=== PATIENT | male | born 1940 | race Caucasian/White ===

== ENCOUNTER 2017-01-24 09:54 | Emergency (ER) | payer MEDICARE, OTHER ==
[~2017-01-24] VITALS: Ht 172.7 cm; Wt 64.4 kg
[~2017-01-24 09:54] MED LIST: AMLODIPINE BESYL5 MG PO; ASPIRIN325 MG PO; ATENOLOL50 MG PO; CLOPIDOGREL75 MG PO; COMBIVENT RESPIM4 GM; FISH OIL 1,2001 EACH; IPRATROPIUM BRO15 ML; PROTONIX40 MG/ML PO; SIMVASTATIN20 MG PO
[2017-01-24 11:15] LABS: BASOPHILS % 0.5 % (0.0-1.0); EOSINOPHILS # (AUTO) 0.1 (0.0-0.4); EOSINOPHILS % 0.8 % (0.0-6.0); HEMATOCRIT 39.3 % (38.2-49.6); HEMOGLOBIN 13.6 g/dL (14.0-18.0); LYMPHOCYTES # (AUTO) 0.8 (1.0-3.2); LYMPHOCYTES % 12.7 % (18.0-39.1); MEAN CORPUSCULAR HEMOGLOBIN 34.7 pg (28-32); MEAN CORPUSCULAR HGB CONC 34.6 g/dL (31-35); MEAN CORPUSCULAR VOLUME 100.3 fL (81-99); MONOCYTES # (AUTO) 0.5 (0.2-0.8); MONOCYTES % 7.7 % (4.4-11.3); NEUTROPHILS # (AUTO) 4.8 (2.1-6.9); PLATELET COUNT 146 x10e3/uL (140-360); RED BLOOD COUNT 3.92 x10e6/uL (4.3-5.7); RED CELL DISTRIBUTION WIDTH 13.2 % (11.7-14.4)
[2017-01-24 11:27] LABS: INR 0.86; PARTIAL THROMBOPLASTIN TIME 29.2 seconds (23.8-35.5); PROTHROMBIN TIME 12.2 seconds (11.9-14.5)
[2017-01-24 11:31] LABS: BLOOD UREA NITROGEN 16 mg/dL (7-26); BUN/CREATININE RATIO 22 (6-25); CALCIUM 9.2 mg/dL (8.4-10.2); CARBON DIOXIDE 26 mmol/L (22-29); CHLORIDE 105 mmol/L (98-107); CREATININE, SERUM 0.74 mg/dL (0.72-1.25); EST GLOMERULAR FILTRATION RATE > 60 ML/MIN (60-); GLUCOSE 93 mg/dL (74-118); SODIUM 140 mmol/L (136-145)
[2017-01-24 12:17] VITALS: BP 178/66
== END 2017-01-24 12:43 | disposition home or self-care (01) ==
LOC: ER 09:54
DX: R04.0 Epistaxis (principal); I10 Essential (primary) hypertension; I51.9 Heart disease, unspecified
CPT/HCPCS: 36415; 80048; 85025; 85610; 85730; 99283

== ENCOUNTER → 2017-10-28 | Outpatient (CLI) | payer MEDICARE, OTHER ==
[2017-10-28 12:53] LABS: BASOPHILS % 0.3 % (0.0-1.0); EOSINOPHILS # (AUTO) 0.1 (0.0-0.4); EOSINOPHILS % 1.9 % (0.0-6.0); HEMATOCRIT 40.9 % (38.2-49.6); HEMOGLOBIN 13.6 g/dL (14.0-18.0); LYMPHOCYTES # (AUTO) 1.2 (1.0-3.2); LYMPHOCYTES % 17.7 % (18.0-39.1); MEAN CORPUSCULAR HEMOGLOBIN 33.2 pg (28-32); MEAN CORPUSCULAR HGB CONC 33.3 g/dL (31-35); MEAN CORPUSCULAR VOLUME 99.8 fL (81-99); MONOCYTES # (AUTO) 0.5 (0.2-0.8); MONOCYTES % 7.6 % (4.4-11.3); NEUTROPHILS # (AUTO) 5.1 (2.1-6.9); NEUTROPHILS % 72.2 % (38.7-80.0); PLATELET COUNT 161 x10e3/uL (140-360); RED CELL DISTRIBUTION WIDTH 12.3 % (11.7-14.4)
[2017-10-28 13:15] LABS: ANION GAP 15.2 mmol/L (8-16); BLOOD UREA NITROGEN 12 mg/dL (7-26); BUN/CREATININE RATIO 16 (6-25); CALCIUM 10.2 mg/dL (8.4-10.2); CARBON DIOXIDE 26 mmol/L (22-29); CHLORIDE 104 mmol/L (98-107); CREATININE, SERUM 0.75 mg/dL (0.72-1.25); EST GLOMERULAR FILTRATION RATE > 60 ML/MIN (60-); GLUCOSE 81 mg/dL (74-118); POTASSIUM 4.2 mmol/L (3.5-5.1); SODIUM 141 mmol/L (136-145)
--- NOTE | 2017-10-28 13:45 | Diagnostic Imaging Report ---
CT CHEST WITHOUT CONTRAST, high-resolution/interstitial lung disease protocol HISTORY: Shortness of breath COMPARISON: None available TECHNIQUE: Multidetector CT scanning of the chest was performed from the level of the thoracic inlet to the upper abdomen without IV or oral contrast. Thin collimation scanning during the inspiratory and expiratory phases as well as in the prone position was performed. Sagittal and coronal multiplanar reformations were obtained. IV CONTRAST: None, which limits evaluation of the vascular structures, mediastinum and soft tissues. RADIATION DOSE: Total DLP: 1377.61 mGy*cm Dose modulation, iterative reconstruction, and/or weight based adjustment of the mA/kV was utilized to reduce the radiation dose to as low as reasonably achievable. COMPLICATIONS: None FINDINGS: Lines/tubes: An implanted left-sided dual-lead cardiac device. Lungs and Airways: The lungs are hyperinflated. Moderate upper to mid lung predominant centrilobular emphysema. Superimposed lower upper lobe predominant paraseptal emphysema. Diffuse bronchial wall thickening. Pleura: The pleural spaces are clear. Heart and mediastinum: The thyroid gland is normal. The heart and pericardium are within normal limits. Abdomen: Limited nonenhanced views of the upper abdomen. Bilateral lobulated contour of the visualized portion of the adrenal glands, without a discrete nodule. Partially visualized 1.5 cm fluid density at the anterior interpolar region of the left kidney. Lymph nodes: No pathologically enlarged lymph node identified. Vessels: Extensive atherosclerotic vascular calcifications, including the coronary arteries. Bones: No acute osseous lesion identified. Soft tissues: Otherwise, unremarkable. IMPRESSION: 1. Moderate centrilobular and paraseptal emphysema. 2. Probable chronic bronchitis. 3. Coronary atherosclerosis. 4. Incompletely evaluated left renal hypodensity. Statistically most likely a cyst, but if not previously characterized, a nonemergent follow-up renal ultrasound is recommended. Signed by: Dr. Meet Carranza D.O., M.M.M. on 10/28/2017 1:41 PM
== END ==
LOC: CT 11:28
PROVIDERS: ATTEND Internal Medicine Pulmonary Disease
DX: R06.02 Shortness of breath (principal); R91.8 Other nonspecific abnormal finding of lung field
CPT/HCPCS: 36415; 71250; 80048; 83880; 85025

== ENCOUNTER 2018-04-24 08:18 | Inpatient (IN) | payer MEDICARE, OTHER ==
--- NOTE | 2018-04-23 16:37 | NUR ---
Spoke with Thu in office to clarify aspirin and plavix prior to procedure.
--- NOTE | 2018-04-23 16:57 | NUR ---
No call back yet. Spoke with Samreen in answering service to page Dr. Partida into clarification of medications prior to procedure.
--- NOTE | 2018-04-23 17:05 | NUR ---
Dr. Partida stated ok to continue aspirin and plavix.
[2018-04-23 17:30] LABS: BASOPHILS % 0.4 % (0.0-1.0); EOSINOPHILS # (AUTO) 0.1 (0.0-0.4); HEMOGLOBIN 13.1 g/dL (14.0-18.0); LYMPHOCYTES # (AUTO) 1.3 (1.0-3.2); LYMPHOCYTES % 22.2 % (18.0-39.1); MEAN CORPUSCULAR HEMOGLOBIN 33.3 pg (28-32); MEAN CORPUSCULAR HGB CONC 32.8 g/dL (31-35); MEAN CORPUSCULAR VOLUME 101.8 fL (81-99); MONOCYTES # (AUTO) 0.6 (0.2-0.8); MONOCYTES % 10.3 % (4.4-11.3); NEUTROPHILS # (AUTO) 3.7 (2.1-6.9); NEUTROPHILS % 64.7 % (38.7-80.0); PLATELET COUNT 156 x10e3/uL (140-360); RED BLOOD COUNT 3.93 x10e6/uL (4.3-5.7); RED CELL DISTRIBUTION WIDTH 12.6 % (11.7-14.4)
[2018-04-23 17:52] LABS: ALANINE AMINOTRANSFERASE 22 IU/L (0-55); ALBUMIN 3.8 g/dL (3.5-5.0); ALBUMIN/GLOBULIN RATIO 1.3 (0.8-2.0); ALKALINE PHOSPHATASE 68 IU/L (40-150); ANION GAP 12.2 mmol/L (8-16); BLOOD UREA NITROGEN 18 mg/dL (7-26); BUN/CREATININE RATIO 22 (6-25); CALCIUM 9.4 mg/dL (8.4-10.2); CARBON DIOXIDE 25 mmol/L (22-29); CHLORIDE 106 mmol/L (98-107); CHOL/HDL RATIO 2.3 (3.9-4.7); CHOLESTEROL 170 MD/DL (0-199); CREATININE, SERUM 0.83 mg/dL (0.72-1.25); EST GLOMERULAR FILTRATION RATE > 60 ML/MIN (60-); GLUCOSE 93 mg/dL (74-118); HDL CHOLESTEROL 75 MG/DL (40-60); LDL CHOLESTEROL 79 MG/DL (60-130); POTASSIUM 4.2 mmol/L (3.5-5.1); SODIUM 139 mmol/L (136-145); TRIGLYCERIDES 81 MG/DL (0-149)
[~2018-04-24] VITALS: Ht 172.7 cm; Wt 74.4 kg
[2018-04-24] VITALS (19 sets, daily range): BP systolic 102–167; BP diastolic 39–79
[~2018-04-24 08:18] MED LIST changes: +HYDROCHLOROTHIA25 MG PO; +LOSARTAN POTASS25 MG PO; +PROAIR HFA INH8.5 GM INH; +VITAMIN D35000 UNIT PO
--- OUTSIDE RECORDS SUMMARY | 2018-04-24 08:21 | XMS REPORT ---
Author Author [facility] Address Unknown Phone Unavailable Care Team Providers Care Openstack Developer Name Role Phone YOHANNES TATUM Unavailable Unavailable ANTONIO HATFIELD Unavailable Unavailable Problems This patient has no known problems. Allergies, Adverse Reactions, Alerts This patient has no known allergies or adverse reactions. Medications This patient has no known medications. Results Test Description Test Time Test Comments Text Results Atomic Results Result Comments CT CHEST WO 2017-10-28 13:26:00 [place] [address] Patient Name: CHIVO CORTEZ MR #: [id number] : 1940 Age/Sex: 77/M Req #: [id number] Adm Physician: Ordered by: YOHANNES TATUM MD Report #: [id number] Location: CT Room/Bed: Procedure: [id number] CT/CT CHEST WO Exam Date: 10/28/17 Exam Time: 1200 REPORT STATUS: Signed CT CHEST WITHOUT CONTRAST, high-resolution/interstitial lung disease protocol HISTORY: Shortness of breath COMPARISON: None available TECHNIQUE: Multidetector CT scanning of the chest was performed from the level of the thoracic inlet to the upper abdomen without IV or oral contrast. Thin collimation scanning during the inspiratory and expiratory phases as well as in the prone position was performed. Sagittal and coronal multiplanar reformations were obtained. IV CONTRAST: None, which limits evaluation of the vascular structures, mediastinum and soft tissues. RADIATION DOSE: Total DLP: 1377.61 mGy*cm Dose modulation, iterative reconstruction, and/or weight based adjustment of the mA/kV was utilized to reduce the radiation dose to as low as reasonably achievable. COMPLICA TIONS: None FINDINGS: Lines/tubes: An implanted left-sided dual- lead cardiac device. Lungs and Airways: The lungs are hyperinflated. Moderate upper to mid lung predominant centrilobular emphysema. Superimposed lower upper lobe predominant paraseptal emphysema. Diffuse bronchial wall thickening. Pleura: The pleural spaces are clear. Heart and mediastinum: The thyroid gland is normal. The heart and pericardium are within normal limits. Abdomen: Limited nonenhanced views of the upper abdomen. Bilateral lobulated contour of the visualized portion of the adrenal glands, without a discrete nodule. Partially visualized 1.5 cm fluid density at the anterior interpolar region of the left kidney. Lymph nodes: No pathologically enlarged lymph node identified. Vessels: Extensive atherosclerotic vascular calcifications, including the coronary arteries. Bones: No acute osseous lesion identified. Soft tissues: Otherwise, unremarkable. IMPRESSION: 1. Moderate centrilobular and paraseptal emphysema. 2. Probable chronic bronchitis. 3. Coronary atherosclerosis. 4. Incompletely evaluated left renal hypodensity. Statistically most likely a cyst, but if not previously characterized, a nonemergent follow-up renal ultrasound is recommended. Signed by: Dr. Christi Carranza D.O., M.M.M. on 10/28/2017 1:41 PM Dictated By: CHRISTI CARRANZA DO 1341 Transcribed By: ARCADIO on 10/28/17 1341 COPY TO: YOHANNES TATUM MD CHEST 2 VIEWS [place] [address] Patient Name: CHIVO CORTEZ MR #: [id number] : 1940 Age/Sex: 76/M Req #: [id number] Adm Physician: Ordered by: ANTONIO HATFIELD MD Report #: [id number] Location: [facility] Room/Bed: Procedure: [id number] DX/CHEST 2 VIEWS Exam Date: 01/01/17 Exam Time: 1045 REPORT STATUS: Signed PROCEDURE: X-RAY CHEST, TWO VIEWS COMPARISON: 11/09/2014. INDICATIONS: SHORTNESS OF BREATH, DYSPNEA FINDINGS: The lungs are hyperinflated with flattening of the diaphragms and increased AP diameter chest. No focal airspace consolidation, pleural effusion, or pneumothorax. Stable cardiomediastinal contour with atherosclerotic calcification of the thoracic aorta and enlargement of the main pulmonary artery. Left subclavian approach implantable cardiac device body and leads are unchanged in position. Probable left subclavian arterial stent, unchanged. No acute osseous abnormality. CONCLUSION: No acute cardiopulmonary abnormality. Pulmonary hyperinflation compatible with COPD. Enlargement of the main pulmonary artery suggests underlying pulmonary hypertension. Dictated by: Yohannes Montoya M.D. on 01/01/2017 at 12:11 Electronically approved by: Yohannes Montoya M.D. on 01/01/2017 at 12:11 Dictated By: YOHANNES MONTOYA MD 1211 Transcribed By: WILMA on 01/01/17 1211 COPY TO: ANTONIO HATFIELD MD
--- NOTE | 2018-04-24 08:45 | NUR ---
Received to electrical laboratory technician room 10 for peripheral angiogram with Dr. Partida. A,A,O x3, ambulatory, VSS, denies pain. Prepped for procedure, IV 20g started to left FA, catie. pedal pulses present via doppler.
[2018-04-24] MEDS ORDERED: IOPAMIDOL 300MG/ML 100 ML INFUS..BTL IV ONE ×2 (09:31→10:13)
[2018-04-24] MEDS ORDERED: LIDOCAINE HCL 2% LOCAL 20 ML VIAL ONE ×2 (09:31→10:40)
[2018-04-24] MEDS ORDERED: HEPARIN SOD/SOD CHLORIDE 2,000 ML ONE (09:31)
[2018-04-24] MEDS ORDERED: SODIUM CHLORIDE 0.9% 1000ML 1,000 ML ONE ×3 (09:31→13:05)
[2018-04-24] MEDS ORDERED: FAMOTIDINE 20 MG TAB ONE (09:38)
[2018-04-24] MEDS ORDERED: LORAZEPAM INJ 2 MG/ML VIAL ONE (09:38)
[2018-04-24] MEDS ORDERED: DIPHENHYDRAMINE HCL 25 MG CAP ONE (09:39)
--- NOTE | 2018-04-24 09:45 | NUR ---
0945 Pre-op medications Benadryl 50 mg PO, Pepcid 20 mg PO, and Ativan 0.5 mg IV given as ordered on-call to the distillery laborer, and transported to the distillery laborer at this time.
[2018-04-24] MEDS ORDERED: MIDAZOLAM HCL 2 MG/2 ML VIAL ONE (10:12)
[2018-04-24] MEDS ORDERED: FENTANYL CITRATE/PF 100MCG/2 ML INJ ONE (10:13)
[2018-04-24] MEDS ORDERED: LABETALOL HCL 20 ML ONE (10:36)
[2018-04-24] MEDS ORDERED: BIVALRIUDIN 250 MG/VIAL VIAL IV ONE (11:16)
[2018-04-24] MEDS ORDERED: SODIUM CHLORIDE 0.9% 50ML 50 ML ONE (11:16)
[2018-04-24] MEDS ORDERED: CEFAZOLIN SOD 1 GM VIAL ONE (12:24)
[2018-04-24] MEDS ORDERED: HYDRALAZINE HCL 20 MG/ML VIAL ONE (12:30)
[2018-04-24] MEDS ORDERED: NITROGLYCERIN 0.4 MG SUBL ONE (12:32)
[2018-04-24] MEDS ORDERED: ATROPINE SULFATE 0.1 MG/ML 10ML SYR ONE (12:42)
[2018-04-24] MEDS ORDERED: ONDANSETRON HCL INJ 2MG/ML 2ML 2 MG/ML VIAL ONE (12:42)
[2018-04-24] MEDS ORDERED: NALOXONE HCL INJ 0.4 MG/ML AMP ONE ×2 (12:49→12:50)
[2018-04-24] MEDS ORDERED: DOBUtamine HCL 500MG/D5W 250ML 250 ML IV SCH (14:00)
--- NOTE | 2018-04-24 14:33 | NUR ---
Report provided to Dante ORTIZ, review of procedural findings and medications given. Patient A & O 3.maintains airway and 2l N/C saturations of 98-99%. No gross issues of pressure, pain, pallor or dysrhythmia. Left femoral sheath site patent with NS 0.9% at 100ml/hr and dopamine gtt @ 2mcg/kg/min . patient hemodynamically stable with hemostasis right groin arterial dressing CDI w/o s/s of bleeding. patient transferred to ICU 191 w/o incident. transported on zoll monitor and 2l NC - cgf procedure: Viabhan stent right popliteal Sheath puller: Angioseal to left groin by Dr. Partida Meds Given Intra-Procedure Sedatives Versed - 1 mg Fentanyl - 50 mcg Ativan - 0.5mg Anticoagulants Angiomax intra Procedure Fluids Input- 1500 ml crystalloid Output - 1000 ml clear yellow Contrast Isovue 300 - 145ml Other Meds Labetalol 15 mg total Hydralazine 20mg total Zofran 4mg Narcan 0.4mg
[2018-04-24] MEDS ORDERED: CLOPIDOGREL BISULFATE 75 MG TAB PO ONE (19:30)
[2018-04-24] MEDS ORDERED: ASPIRIN 81 MG ENTERIC COATED PO ONE (19:30)
[2018-04-25] VITALS: BP 156/49
[2018-04-25 01:00] VITALS: BP 165/54
[2018-04-25 02:00] VITALS: BP 174/60
[2018-04-25 03:00] VITALS: BP 156/53
[2018-04-25 04:00] VITALS: BP 139/57
[2018-04-25] MEDS ORDERED: ASPIRIN 81 MG ENTERIC COATED PO SCH (09:00)
[2018-04-25] MEDS ORDERED: CLOPIDOGREL BISULFATE 75 MG TAB PO SCH (09:00)
[2018-04-25 11:38] LABS: BASOPHILS % 0.3 % (0.0-1.0); EOSINOPHILS # (AUTO) 0.1 (0.0-0.4); EOSINOPHILS % 1.7 % (0.0-6.0); HEMATOCRIT 35.3 % (38.2-49.6); HEMOGLOBIN 11.4 g/dL (14.0-18.0); LYMPHOCYTES # (AUTO) 1.2 (1.0-3.2); LYMPHOCYTES % 18.9 % (18.0-39.1); MEAN CORPUSCULAR HEMOGLOBIN 33.1 pg (28-32); MEAN CORPUSCULAR HGB CONC 32.3 g/dL (31-35); MEAN CORPUSCULAR VOLUME 102.6 fL (81-99); MONOCYTES # (AUTO) 0.7 (0.2-0.8); MONOCYTES % 10.2 % (4.4-11.3); NEUTROPHILS # (AUTO) 4.4 (2.1-6.9); NEUTROPHILS % 68.6 % (38.7-80.0); PLATELET COUNT 140 x10e3/uL (140-360); RED BLOOD COUNT 3.44 x10e6/uL (4.3-5.7); RED CELL DISTRIBUTION WIDTH 13.2 % (11.7-14.4)
[2018-04-25 12:00] LABS: ANION GAP 10.7 mmol/L (8-16); BLOOD UREA NITROGEN 10 mg/dL (7-26); BUN/CREATININE RATIO 14 (6-25); CALCIUM 8.7 mg/dL (8.4-10.2); CARBON DIOXIDE 26 mmol/L (22-29); CHLORIDE 110 mmol/L (98-107); CREATININE, SERUM 0.74 mg/dL (0.72-1.25); EST GLOMERULAR FILTRATION RATE > 60 ML/MIN (60-); GLUCOSE 92 mg/dL (74-118); POTASSIUM 4.7 mmol/L (3.5-5.1); SODIUM 142 mmol/L (136-145)
--- NOTE | 2018-04-26 19:17 | Operative Report ---
DATE OF PROCEDURE: SURGEON: Alejandro Partida MD DIAGNOSES: 1. Severe peripheral vascular disease with claudication of the right lower extremity and high-grade stenosis of the distal superficial femoral artery and proximal popliteal artery on ultrasound. 2. Coronary sclerotic and hypertensive cardiovascular disease. 3. 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 4. Significant carotid artery disease. 5. Chronic severe peripheral vascular disease with bypass graft on the left lower extremity. PROCEDURES: 1. Right iliofemoral angiogram. 2. Angioplasty and stenting of the distal SFA and proximal popliteal artery with Lee Tigris vascular stent. 3. Closure of left femoral artery with Angio-Seal VIP. ANESTHESIA: Obtained with local anesthetic and moderate sedation. DESCRIPTION OF PROCEDURE: After the usual prepping and draping, the left inguinal area was infiltrated with local lidocaine. Left femoral vein was punctured percutaneously with a 5-Turkish venous sheath and was placed in the left femoral vein. Micropuncture was used to enter the left femoral artery and a 6-Turkish arterial sheath was placed. A 5-Turkish Omniflush angiographic catheter was then utilized to cross the iliac bifurcation and 0.035 Advantage guidewire was advanced into the right superficial femoral artery. A 6-Turkish [place] Crossover sheath was then placed over the guidewire and positioned into the right external iliac artery after angiogram of the right lower extremity was obtained through the Omniflush catheter. A diagnostic angiogram was then reviewed and severe 99% calcified stenosis in the distal SFA and proximal popliteal artery was identified. Angioplasty was then considered and the lesion was crossed with 0.014 Hi-Torque Floppy guidewire. Dilatation of lesion was performed using a 4 mm x 20 mm Emerge balloon catheter. The patient had been started on Angiomax bolus and drip prior to the balloon dilatation. A 5 x 40 Lee Tigris Vascular stent was then placed across the lesion and postdilated with an Ultraverse 5 x 40 balloon catheter. Excellent result was obtained and there was no residual stenosis and excellent runoff. At the end of the procedure and the removal of the stent carrier, the Crossover sheath was then withdrawn into the left external iliac artery and exchanged to 6-Turkish short arterial sheath for angiogram of the left groin area in the left anterior oblique position prior to closure of the left femoral artery with Angio-Seal. The patient was very stable throughout the procedure mostly being hypertensive and at the end of the procedure the patient's blood pressure did rise to 240 mm systolic and he was complaining of being uncomfortable and having a bodily ache from lying on the table. Antihypertensive medication was then given including hydralazine and labetalol as well as 1 sublingual tablet of nitroglycerin, which reduced the patient's blood pressure to 150 mmHg prior to the closure of the left femoral artery. Because of the complaint of aching with back pain, he also received an additional 25 mg of fentanyl. When the Angio-Seal procedure was completed, the patient had a vasovagal reaction and became hypotensive and also showed some hypoventilation after the fentanyl. He received 0.4 mg of Narcan and IV fluids through the peripheral vein as well as through the venous sheath. His blood pressure was in the range of 90 to 95 and dopamine also was initiated at 3 mcg, which established systolic blood pressure between 100 and 110. The patient was awake and responsive and did not show any neurological abnormalities. He was then transferred to the intensive care unit for management of his hypotension to be continued on IV fluids and low dose of dopamine. However, there was no evidence of hematoma and excellent hemostasis was achieved with Angio-Seal procedure and we will observe the patient closely. He will be continued on antiplatelet medication and hopefully discharge within 24 hours after his admission. IMPRESSION: Severe peripheral vascular disease managed with angioplasty on stenting of the right distal SFA and popliteal artery successfully. MD SISI CarltonH/MODL /[id number]
== END 2018-04-25 13:32 | disposition home or self-care (01) | DRG 253 ==
LOC: CATH LAB 08:18 → CATH LAB V 14:01 → ICU 14:52
PROVIDERS: ADMIT Internal Medicine Cardiovascular Disease; ATTEND Internal Medicine Cardiovascular Disease
PROC: 047K3ZZ Dilation of Right Femoral Artery, Percutaneous Approach (ICD-10-PCS; principal; 2018-04-24)
PROC: 047M34Z Dilation of Right Popliteal Artery with Drug-eluting Intraluminal Device, Percutaneous Approach (ICD-10-PCS; 2018-04-24)
PROC: B41G1ZZ Fluoroscopy of Left Lower Extremity Arteries using Low Osmolar Contrast (ICD-10-PCS; 2018-04-24)
DX: I70.211 Atherosclerosis of native arteries of extremities with intermittent claudication, right leg (principal); G45.8 Other transient cerebral ischemic attacks and related syndromes; I25.10 Atherosclerotic heart disease of native coronary artery without angina pectoris; I10 Essential (primary) hypertension; J44.9 Chronic obstructive pulmonary disease, unspecified; I65.29 Occlusion and stenosis of unspecified carotid artery
CPT/HCPCS: 36246; 36415; 37226; 75625; 75710; 80048; 80053; 80061; 85025; C1725; C1769; J0360; J0583; J0690; J1250; J2001; J2060; J2250; J2310; J2405; J7030; Q9967

== ENCOUNTER → 2018-06-26 | Outpatient (CLI) | payer MEDICARE, OTHER ==
--- NOTE | 2018-06-26 10:47 | Diagnostic Imaging Report ---
EXAMINATION: CHEST 2 VIEWS INDICATION: Chronic obstructive pulmonary disease. ^[id number] ^1016 ^CHRONIC OBSTUCTIVE PULMONARY DISEASE COMPARISON: CT scan 10/28/2017 FINDINGS: TUBES and LINES: Left anterior chest dual lead cardiac device. LUNGS: Chronic appearing changes in the lungs with hyperinflation. There is no evidence of pneumonia or pulmonary edema. PLEURA: No pleural effusion or pneumothorax. HEART AND MEDIASTINUM: The cardiomediastinal silhouette is unremarkable. BONES AND SOFT TISSUES: No acute osseous lesion. Soft tissues are unremarkable. UPPER ABDOMEN: No free air under the diaphragm. IMPRESSION: Chronic appearing changes in the lungs with hyperinflation. Signed by: Dr. Goldy Duvall M.D. on 06/26/2018 10:44 AM
== END ==
LOC: RAD 09:52
PROVIDERS: ATTEND Internal Medicine Pulmonary Disease
DX: J44.9 Chronic obstructive pulmonary disease, unspecified (principal)
CPT/HCPCS: 71046

== ENCOUNTER → 2018-10-15 | Outpatient (CLI) | payer MEDICARE, OTHER ==
--- NOTE | 2018-10-15 17:29 | Diagnostic Imaging Report ---
EXAMINATION: CHEST 2 VIEWS INDICATION: COPD COMPARISON: Chest radiograph of 06/26/2018, chest CT of 10/29/2017 FINDINGS: LINES/TUBES:Left chest pacer with leads in unchanged position. LUNGS:The lungs are hyperinflated. No focal consolidation or pulmonary edema. PLEURA:No pleural effusion or pneumothorax. MEDIASTINUM:The cardiomediastinal silhouette appears normal in size and shape. Atherosclerotic calcifications of the thoracic aorta. Redemonstration of left subclavian stent. BONES/SOFT TISSUES:No acute osseous injury. ABDOMEN:No free air under the diaphragm. IMPRESSION: Hyperinflated lungs. No focal pneumonia or pulmonary edema. Signed by: Lalitha Dexter MD on 10/15/2018 5:26 PM
== END ==
LOC: RAD 16:25
DX: J44.9 Chronic obstructive pulmonary disease, unspecified (principal)
CPT/HCPCS: 71046